=== PATIENT | male | born 1970 | race American Indian/Alaskan Native ===

== ENCOUNTER 2018-05-07 18:50 | Emergency (ER) | payer MEDICAID ==
[2018-05-07 19:20] VITALS: RESP 18; TEMP 98.2
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
[2018-05-07] MEDS ORDERED: Oxycodone/Acetaminophen 5/325 mg Tab PO STA (21:35)
[2018-05-07 21:49] VITALS: BP 128/89; PULSE 73; O2SAT 100
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
== END 2018-05-07 21:46 | disposition home or self-care (01) ==
LOC: MERGE 18:50 → ED 18:50
DX: S90.31XA Contusion of right foot, initial encounter (principal); W23.0XXA Caught, crushed, jammed, or pinched between moving objects, initial encounter
CPT/HCPCS: 73610; 73630; 96372; 99283; J1885